=== PATIENT | female | born 1940 | race Caucasian/White ===

== ENCOUNTER 2017-03-22 03:27 | Inpatient (IN) | payer OTHER, MEDICARE ==
[~2017-03-22] VITALS: Ht 170.2 cm; Wt 94.8 kg
[~2017-03-22 03:27] MED LIST: AMARYL 2 MG2 MG PO; BENAZEPRIL HCL20 MG PO; FLEXERIL10 MG PO; FLU VACCINE 0.0.5 ML IM; FUROSEMIDE40 M1 PO; GLUCOPHAGE850 MG PO; IMODIUM2 MG PO; KLOR-CON 88 ME1 PO; LEVEMIR100 UNIT/1 SC; LEVOTHYROXINE75 MCG PO; OMEPRAZOLE20 M2 PO; OXYCODONE HYDRO10 M1 PO; PERCOCET 325 MG1 TA2 PO; PERCOCET 325 MG1 TA3 PO; PNEUMOVAX 0.5M0.5 ML IM; PREDNICOT20 MG PO; TRAMADOL HCL50 M1 PO; TRAZODONE HCL50 M1 PO; TRAZODONE50 MG PO; TRIAMCINOLONE A80 GM TOP; VALIUM2 MG PO; VALIUM5 M1 PO; VITAMIN B12100 MCG PO; VITAMIN D1000 IU PO; VITAMIN D32000 I1 PO; ZOLOFT25 MG PO
--- NOTE | 2017-03-22 09:32 | Operative Report ---
Operative/Inv Procedure Report Surgery Date: 03/22/17 Name of Procedure: Total hip arthroplasty, left Pre-Operative Diagnosis: Left hip primary osteoarthritis Post-Operative Diagnosis: Same Estimated Blood Loss: 300 CC Surgeon/Air Conditioning Mechanic Industrial: HILLARY CONNORS,RORO Bolanos Anesthesia: general endotracheal tube IV Fluids: See anesthesia record Implants: Rock Accolade stem size 7, size 52 acetabular shell -5 neck length 86 mm head Drains: None Specimens: Left femoral head Complications: None Condition: Stable Operative Indication: Patient is a 77-year-old female with severe osteoarthritis of the left hip. She was indicated for total hip arthroplasty after failed conservative treatment. A skilled set hands was necessary provided by physician auction assistant Caleb Bolanos weighted with positioning retraction throughout the case. Risks and benefits of the procedure discussed the patient in detail and she wished to proceed. Operative/Procedure Note Note: Once informed consent was obtained and the correct limb was identified the patient brought to operative room placed on table supine position. After administration of general endotracheal anesthesia patient placed in right lateral decubitus position with an axial roll in place on the pegboard. All bony prominences were padded. A Cruz catheter had been placed. The left lower 70 is prepped and draped usual sterile fashion. To begin the procedure suture and incisions made from the tip of the greater trochanteric area posteriorly. Sharp dissection carried on skin and subcutaneous tissue. Copious mas fascia was incised. We then retractors were placed in the incision and the piriformis tendon was identified. Retractors were placed under the gluteus medius muscle belly and under the femoral shaft just below the lesser trochanter. Once the piriformis tendon had been released and tagged the chondral air was used to isolate the capsule and the retractor was then placed underneath gluteus minimus tendon. Capsulotomy was performed and this was taken back as a flap intact as well for later repair. The hip was dislocated and a femoral neck cut was made 1 fingerbreadth above the lesser trochanter. Femoral head was passed off as specimen. Anterior and inferior acetabular retractors were placed and pulmonary and anterior capsule removed from acetabulum. Reaming was then begun and we reamed up to a 51 reamer. A 52 trial acetabulum was placed and found to be an excellent press-fit. The acetabular socket was pulse lavaged and a 52 acetabular shell from the Rock set was placed into a press-fit fashion without any, patient. No screws were necessary for fixation. Attention was then turned to the femoral side of the arthroplasty. Box osteotome was used to open up the femoral canal and then we use a starting reamer as well to open up distally. We then sequentially broached up to a size 7 broach. The Accolade 2 size 7 broach was left in place trial reduction was done. The leg lengths are measured and a and the leg was slightly long with a standard neck length. Recommend to a -5 neck length and leg lengths were equal. The leg was taken through a range of motion hip was stable. Components were removed after dislocation. And the canal was pulse lavaged. A size 7 Accolade 2 press-fit stem was opened and placed on the canal without compensation. Retrial was done and the -5 neck length was appropriate. A 36 mm head -5 neck length was opened and placed onto the femoral component and the hip was reduced. Hip was taken through a range of motion found be stable. The wound was pulse lavaged. Drill holes were placed the greater trochanter and the capsule and piriformis and repaired back to the greater trochanter. The gluteus karin fascia was then closed with a running #1 PDS looped suture. The tissues closed #1 Vicryl interrupted sutures and the the subcutaneous tissues closed with #2 Vicryl interrupted sutures and the skin was closed erik. Sterile dressing was applied hip adduction pillow was placed and the patient awakened taken recovery in stable condition.
--- NOTE | 2017-03-22 10:24 | RADIOLOGY REPORT ---
EXAMINATION: XR HIP, LEFT CLINICAL INFORMATION: Status post left total hip arthroplasty. COMPARISON: None TECHNIQUE: Single frontal radiograph of the left hip. FINDINGS: There are post total hip arthroplasty changes with metallic acetabular and femoral components without evidence of immediate complication. Multiple cutaneous clips are identified laterally. IMPRESSION: Post total hip arthroplasty changes left hip without evidence of immediate complication.
[2017-03-22 11:35] VITALS: BP 126/78
--- NOTE | 2017-03-22 13:15 | PN- Orthopedic ---
Subjective Subjective: The patient was seen this afternoon postoperatively. She reports that her pain is under adequate control however she complains of some nausea. She has no other complaints and denies any chest pain or difficulty breathing. Objective Vital Signs and I&Os Vital Signs Date Time Temp Pulse Resp B/P B/P Pulse O2 O2 Flow FiO2 Mean Ox Delivery Rate 03/22 1135 97.8 88 20 126/78 94 Room Air Intake & Output 03/22 1600 03/22 0800 03/22 0000 03/21 1600 03/21 0800 03/21 0000 Intake Total Output Total Balance Patient 209 lb Weight Weight Reported by Patient Measurement Method Physical Exam: Gen.: Alert and in no obvious distress Skin: Warm and dry Cardiac: S1-S2 regular Pulmonary: Bilateral breath sounds were equal and decreased at bases Extremities: Bilateral lower extremities are warm without calf tenderness or significant edema. Gross motor and sensory are intact. Left hip surgical dressing was clean, dry, and intact. Assessment/Plan Assessment/Plan Assessment: 77-year-old female status post left total hip arthroplasty. Postoperative the patient is progressing as expected and her pain is under adequate control. Plan: Advance diet as tolerated Continue hydration and Cruz catheter until the morning Begin DVT prophylaxis tonight with first dose of Coumadin Postoperative prophylactic antibiotics Out of bed with physical therapy Will order additional antiemetic Continue current pain regiment Follow-up morning laboratory studies Resume home medications Core Measures/Miscellaneous Venous Thromboembolism VTE Risk Factors: Age > 40, Obesity, Surgery VTE Contraindications: No Contraindications VTE Diagnosis: No Beta Ingrid Is Beta Ingrid a Home Med? No Antibiotics Is Patient on Antibiotics? Yes If Yes: prophylaxis
[2017-03-22 14:10] VITALS: BP 140/66
[2017-03-22 17:03] VITALS: BP 132/60
[2017-03-22 19:07] VITALS: BP 150/60
[2017-03-22 21:38] VITALS: BP 148/63
[2017-03-23 02:27] VITALS: BP 115/62
--- NOTE | 2017-03-23 07:13 | PN- Orthopedic ---
See Addendum Subjective Subjective: The patient was seen this morning postoperatively day 1. She reports her pain is under adequate control and has no other complaints at the current time. Objective Vital Signs and I&Os Vital Signs Date Time Temp Pulse Resp B/P B/P Pulse O2 O2 Flow FiO2 Mean Ox Delivery Rate 03/23 0227 99.8 83 18 115/62 93 Room Air 03/22 2138 98.2 80 20 148/63 95 Room Air 03/22 1907 98.6 85 20 150/60 96 Room Air 03/22 1703 97.8 78 20 132/60 92 Room Air 03/22 1410 97.6 70 20 140/66 94 Room Air 03/22 1135 97.8 88 20 126/78 94 Room Air Intake & Output 03/23 0803/23 0000 03/22 1600 03/22 0800 03/22 0000 03/21 1600 Intake Total 550 Output Total 700 275 Balance -700 275 Intake, IV 150 Intake, Oral 400 Output, Urine 700 275 Patient 209 lb Weight Weight Reported by Patient Measurement Method Physical Exam: Gen.: Alert and in no obvious distress Skin: Warm and dry Extremities: Bilateral lower extremities are warm without calf tenderness or significant edema. Gross motor and sensory are intact. Left hip surgical dressing is clean, dry, and intact. Assessment/Plan Assessment/Plan Assessment: 77-year-old female status post left total hip arthroplasty postoperative day 1. The patient is progressing as expected and her pain is under adequate control. Plan: Out of bed with physical therapy Continue current pain regiment Hep-Lock IV fluids and DC Cruz catheter Follow-up morning laboratory studies and dose Coumadin for an INR between 2 and 3 For surgical dressing change tomorrow Incentive spirometry GI and DVT prophylaxis Core Measures/Miscellaneous Venous Thromboembolism VTE Risk Factors: Age > 40, Obesity, Surgery VTE Contraindications: No Contraindications VTE Diagnosis: No Beta Ingrid Is Beta Ingrid a Home Med? No Antibiotics Is Patient on Antibiotics? No
[2017-03-23 07:41] VITALS: BP 100/60
[2017-03-23 08:15] LABS: ABSOLUTE BASOPHIL COUNT 0.1 /CUMM (0.0-0.2); ABSOLUTE EOSINOPHIL COUNT 0 /CUMM (0.0-0.7); ABSOLUTE LYMPH COUNT 2.1 /CUMM (1.2-3.4); ABSOLUTE MONOCYTE COUNT 1.4 /CUMM (0.10-0.60); BASOPHIL % 0.3 % (0.0-2.0); EOSINOPHIL % 0.1 % (0-5); GRANULOCYTE % 79.5 % (42.2-75.2); HEMATOCRIT 34.9 % (37-47); MEAN CORPUSCULAR HGB 29.5 PG (27.0-31.0); MEAN CORPUSCULAR HGB CONC 33.9 G/DL (33.0-37.0); PLATELET COUNT 160 /CUMM (130-400); PT 12.7 SEC (9.4-12.5); RBC DISTRIBUTION WIDTH 14.4 % (11.5-14.5); RED BLOOD CELL CT 4.01 /CUMM (4.20-5.40); WHITE BLOOD CELL COUNT 17.6 /CUMM (4.8-10.8)
[2017-03-23 10:37] VITALS: BP 118/78
--- NOTE | 2017-03-23 12:12 | Cons- Medical ---
General Information and HPI Consulting Request Date of Consult: 03/23/17 Requested By: HILLARY CONNORS,RORO Galindo Reason for Consult: Medical comanagement Source of Information: patient, old records Exam Limitations: no limitations History of Present Illness: 77-year-old female with history of Diabetes mellitus on insulin, hypertension, COPD, fibromyalgia, IBS, spinal stenosis and insomnia. Past surgical history significant for right thyroid lobectomy, two discs removed from her spine, oophorectomy status post day 1 left total hip arthroplasty without complications. On evaluation she complains of left hip discomfort otherwise ambulatory with PT. Allergies/Medications Allergies: Coded Allergies: Penicillins (RASH 01/04/16) acetaminophen (? 03/16/17) albuterol (From VENTOLIN HFA) (? 03/16/17) celecoxib (From CELEBREX) (? 03/16/17) codeine (From TYLENOL-CODEINE) (? 03/16/17) hydrochlorothiazide (From MAXZIDE) (UNKNOWN 01/04/16) iodine (? 03/16/17) polymyxin B (? 03/16/17) rofecoxib (From VIOXX) (? 03/16/17) sulfamethoxazole (From SEPTRA) (UNKNOWN 01/04/16) triamterene (From MAXZIDE) (UNKNOWN 01/04/16) trimethoprim (From SEPTRA) (UNKNOWN 01/04/16) gabapentin (NAUSEA / VOMITING 03/16/17) prednisone (NAUSEA / VOMITING 03/16/17) Home Med List: Benazepril HCl 20 MG TABLET 1 TAB PO DAILY BP (Reported) Furosemide 40 MG TABLET 1 TAB PO DAILY BP (Reported) Insulin Detemir (Levemir) 100 UNIT/ML VIAL 20 UNITS SC BID DM II (Reported) Levothyroxine Sodium 75 MCG TABLET 1 TAB PO DAILY AC THYROID (Reported) Omeprazole 20 MG CAPSULE.DR 1 CAP PO DAILY GI (Reported) Potassium Chloride (Klor-Con 8) 8 MEQ TABLET.ER 1 TAB PO DAILY BC OF FUROSEMIDE (Reported) Tramadol HCl 50 MG TABLET 1 TAB PO TIDPRN PAIN (Reported) Trazodone HCl 50 MG TABLET 1 TAB PO QPM SLEEP (Reported) Current Medications: Current Medications Sig/Fercho Start time Last Medication Dose Route Stop Time Status Admin Al Hydroxide/Mg 30 ML Q6P PRN 03/22 1145 AC Hydroxide PO Docusate Sodium 100 MG BID 03/22 2200 AC 03/22 PO 2237 Docusate Sodium 100 MG DAILY NEEDED PRN 03/22 1145 DC PO Furosemide 40 MG DAILY 03/22 1000 AC 03/23 PO 1037 Insulin Detemir 20 UNITS BID 03/22 1000 AC 03/23 SC 1036 Insulin Human Regular 0 TIDAC/HS 03/22 1200 AC 03/23 SC 1203 Levothyroxine Sodium 0.075 MG DAILY AC 03/23 0700 AC 03/23 PO 0553 Lisinopril 20 MG DAILY 03/23 1000 AC 03/23 PO 1037 Metoclopramide HCl 10 MG ONCE ONE 03/22 1315 DC 03/22 IV 03/22 1316 1345 Morphine Sulfate 2 MG Q3P PRN 03/22 1145 AC IV Morphine Sulfate 4 MG Q3P PRN 03/22 1145 AC 03/23 IV 1038 Omeprazole 20 MG DAILY 03/22 1000 AC PO Ondansetron HCl 4 MG Q6P PRN 03/22 1145 AC 03/22 IV 1147 Oxycodone HCl 5 MG Q4P PRN 03/23 0730 AC 03/23 PO 0818 Polyethylene Glycol 17 GM DAILY NEEDED PRN 03/22 1145 AC PO Potassium Chloride 10 MEQ DAILY 03/23 1000 AC 03/23 PO 1037 Senna/Docusate Sodium 2 TAB AT BEDTIME 03/22 2200 AC 03/22 PO 2237 Senna/Docusate Sodium 2 TAB AT BEDTIME NEED.. 03/22 1145 DC PO Sodium Chloride 1,000 ML .[id number] 03/22 1145 DC 03/22 IV 2307 Tramadol HCl 50 MG Q4P PRN 03/22 1145 DC 03/22 PO 1459 Trazodone HCl 50 MG QPM 03/22 2200 AC 03/22 PO 2237 Vancomycin HCl 1,000 MG ONCE ONE 03/22 190 DC 03/22 Sodium Chloride 250 ML IV 03/22 1959 1841 Warfarin Sodium 5 MG COUMADIN 1700 ONE 03/23 1700 AC PO 03/23 1701 Warfarin Sodium 5 MG COUMADIN 1700 ONE 03/22 1700 DC 03/22 PO 03/22 1701 1711 Review of Systems Review of Systems Constitutional: Denies: no symptoms, see HPI, chills, diaphoresis, fever, malaise, weakness, unexplained weight loss. Cardiovascular: Denies: no symptoms, see HPI, chest pain, edema, orthopena, palpitations, peripheral edema, syncope. Respiratory: Denies: no symptoms, see HPI, cough, hemoptysis, orthopnea, short of breath, sputum production, stridor, wheezing. GI: Denies: no symptoms, see HPI, abdominal pain, bloating, constipation, diarrhea, distention, bowel incontinence, melena, nausea, bloody stool, changes in stool, vomiting, steatorrhea. Genitourinary: Denies: no symptoms, see HPI, discharge, dysuria, frequency, hematuria, hesitation, nocturia, pain, urgency. Musculoskeletal: Reports: joint pain. Skin: Denies: no symptoms, see HPI, cysts, change in skin color, change in hair/nails, dryness, erythema, jaundice, lesions, lymphangitis, lumps, moles, rash. 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 Home Services at Home: None Smoking Status: Former Smoker Exam & Diagnostic Data Last 24 Hrs of Vital Signs/I&O Vital Signs Date Time Temp Pulse Resp B/P B/P Pulse O2 O2 Flow FiO2 Mean Ox Delivery Rate 03/23 1037 78 118/78 03/23 1037 78 20 118/78 95 Room Air 03/23 0741 99.2 85 20 100/60 94 Room Air 03/23 0227 99.8 83 18 115/62 93 Room Air 03/22 2138 98.2 80 20 148/63 95 Room Air 03/22 1907 98.6 85 20 150/60 96 Room Air 03/22 1703 97.8 78 20 132/60 92 Room Air 03/22 1410 97.6 70 20 140/66 94 Room Air Intake & Output 03/23 1600 03/23 0800 03/23 0000 Intake Total Output Total 300 100 700 Balance -300 -100 -700 Output, Urine 300 100 700 Physical Exam General Appearance: alert, awake, mild distress Respiratory: normal breath sounds, chest non-tender, lungs clear Cardiovascular: regular rate/rhythm Gastrointestinal: soft, non-tender Extremities: no edema, left upper thigh incision site clean Last 24 Hrs of Labs/Satya: Laboratory Tests 03/23/17 0625: Anion Gap 12, Estimated GFR 43 L, BUN/Creatinine Ratio 15.0, PT 12.7 H, INR 1.21 H, CBC w Diff NO MAN DIFF REQ, RBC 4.01 L, MCV 87.0, MCH 29.5, RDW 14.4, MPV 10.0, Gran % 79.5 H, Lymphocytes % 12.0 L, Monocytes % 8.1, Eosinophils % 0.1, Basophils % 0.3, Absolute Granulocytes 14.0 H, Absolute Lymphocytes 2.1, Absolute Monocytes 1.4 H, Absolute Eosinophils 0, Absolute Basophils 0.1, PUBS MCHC 33.9 Assessment/Plan Assessment/Plan 77-year-old female with history of Diabetes mellitus on insulin, hypertension, COPD, fibromyalgia, IBS, spinal stenosis and insomnia is status post day 1 left total hip arthroplasty without complications. On evaluation she complains of left hip discomfort otherwise ambulatory with PT. she has mild leukocytosis and urine growing gram-negative rods however with 50,000 colonies. Patient otherwise is afebrile and has no urinary symptoms. She must be followed off antibiotics. Blood sugars borderline elevated. Plan Follow off antibiotics Consider increasing insulin sliding-scale by 2 units for every 50 increment in blood sugar Continue blood pressure medication Continue current pain medication Coumadin for 6 weeks PT evaluation/patient prefers home discharge with services We'll continue to follow Problem List: 1. Arthritis 2. Hyperglycemia Copies To: HILLARY CONNORS,RORO Galindo Consult Acknowledgment - Thank you for your consult request.
[2017-03-23 14:20] VITALS: BP 124/50
[2017-03-23 21:31] VITALS: BP 122/50
[2017-03-24 06:45] VITALS: BP 121/43
--- NOTE | 2017-03-24 08:04 | PN- Orthopedic ---
Subjective Subjective: POD#2 S/P LEFT LOVELY NO MAJOR ISSUES OVERNIGHT SITTING UP IN CHAIR NOW EATING BREAKFAST MARCYEIS CP, SOB, NO N+V WITH DIET Objective Vital Signs and I&Os Vital Signs Date Time Temp Pulse Resp B/P B/P Pulse O2 O2 Flow FiO2 Mean Ox Delivery Rate 03/24 0645 99.0 83 20 121/43 95 Room Air 03/23 2131 98.5 88 18 122/50 93 03/23 1420 98.3 89 18 124/50 92 Room Air 03/23 1037 78 118/78 03/23 1037 78 20 118/78 95 Room Air Intake & Output 03/24 1600 03/24 0800 03/24 0000 03/23 1600 03/23 0800 03/23 0000 Intake Total 260 800 775 Output Total 450 600 100 700 Balance 260 350 175 -100 -700 Intake, IV 20 75 Intake, Oral 240 800 700 Number 0 0 Bowel Movements Output, Urine 450 600 100 700 Physical Exam: CV: RRR LUNGS: CLEAR ABD: SOFT, +BS EXT: DRSG CHANGED, WOUND C/D/I THIGH SOFT NO CALF TENDERNESS BILAT DISTAL CMS INTACT Assessment/Plan Assessment/Plan ORTHO STABLE PLAN CONT OOB WITH PT/STAIRS F/U AM LABS TITRATE COUMADIN DOSE FOR INR 2-3 HOME D/C PLANNING IN AM Core Measures/Miscellaneous Venous Thromboembolism VTE Risk Factors: Age > 40, Obesity, Surgery VTE Contraindications: No Contraindications VTE Diagnosis: No Beta Ingrid Is Beta Ingrid a Home Med? No Antibiotics Is Patient on Antibiotics? No
[2017-03-24 08:17] LABS: PT 16.5 SEC (9.4-12.5)
--- NOTE | 2017-03-24 09:20 | PN- Medicine Consult ---
Assessment/Plan Assessment/Plan Assessment: Patient complaining of pain in her joints and lower back since starting opioid pain meds. Is possible her fibromyalgia might be flaring secondary to opiate pain meds. Since narcotics are contraindicated in patients with fibro-myalgia. I have advised patient to cut down the use of narcotics. It'll also be reasonable to use a lesser potent opioid. Also noted acute kidney injury likely secondary to poor by mouth intake of fluids and Lasix. Plan: Plan Consider using tramadol for [id number] pain and oxycodone for severe pain Decrease doses of narcotics Hold Lasix and encourage by mouth fluids Repeat BMP in a.m. Continue blood pressure medication Coumadin for 6 weeks PT evaluation/patient prefers home discharge with services We'll continue to follow Problem List: 1. Acute low back pain 2. Hyperglycemia Subjective Subjective: Patient completed some pain in her joints and lower back Review of Systems Constitutional: Denies: no symptoms, see HPI, chills, diaphoresis, fever, malaise, weakness, unexplained weight loss. Cardiovascular: Denies: no symptoms, see HPI, chest pain, edema, orthopena, palpitations, peripheral edema, syncope. Respiratory: Denies: no symptoms, see HPI, cough, hemoptysis, orthopnea, short of breath, sputum production, stridor, wheezing. Gastrointestinal: Denies: no symptoms, see HPI, abdominal pain, bloating, constipation, diarrhea, distention, bowel incontinence, melena, nausea, bloody stool, changes in stool, vomiting, steatorrhea. Musculoskeletal: Reports: back pain, joint pain. Skin: Denies: no symptoms, see HPI, cysts, change in skin color, change in hair/nails, dryness, erythema, jaundice, lesions, lymphangitis, lumps, moles, rash. Objective Last 24 Hrs of Vital Signs/I&O Vital Signs Date Time Temp Pulse Resp B/P B/P Pulse O2 O2 Flow FiO2 Mean Ox Delivery Rate 03/24 0645 99.0 83 20 121/43 95 Room Air 03/23 2131 98.5 88 18 122/50 93 03/23 1420 98.3 89 18 124/50 92 Room Air 03/23 1037 78 118/78 03/23 1037 78 20 118/78 95 Room Air Intake & Output 03/24 1600 03/24 0800 03/24 0000 Intake Total 260 800 Output Total 450 Balance 260 350 Intake, IV 20 Intake, Oral 240 800 Number 0 Bowel Movements Output, Urine 450 Physical Exam General Appearance: no apparent distress, alert, anxious Cardiovascular: regular rate/rhythm Respiratory: normal breath sounds, lungs clear Abdomen: soft, non-tender Extremities: normal inspection, no edema Current Medications: Current Medications Sig/Fercho Start time Last Medication Dose Route Stop Time Status Admin Al Hydroxide/Mg 30 ML Q6P PRN 03/22 1145 AC Hydroxide PO Docusate Sodium 100 MG BID 03/22 220 AC 03/24 PO 0801 Furosemide 40 MG DAILY 03/22 1000 AC 03/24 PO 0802 Insulin Detemir 20 UNITS BID 03/22 1000 AC 03/24 SC 0802 Insulin Human Regular 4 UNITS .STK-MED ONE 03/23 2138 DC IV 03/23 2139 Insulin Human Regular 8 UNITS .STK-MED ONE 03/23 171 DC IV 03/23 171 Insulin Human Regular 8 UNITS .STK-MED ONE 03/23 1159 DC IV 03/23 1200 Insulin Human Regular 0 TIDAC/HS 03/22 1200 AC 03/24 SC 0802 Levothyroxine Sodium 0.075 MG DAILY AC 03/23 0700 AC 03/24 PO 0625 Lisinopril 20 MG DAILY 03/23 1000 AC 03/24 PO 0802 Morphine Sulfate 2 MG Q3P PRN 03/22 1145 AC IV Morphine Sulfate 4 MG Q3P PRN 03/22 1145 AC 03/23 IV 1038 Omeprazole 20 MG DAILY 03/22 1000 AC PO Ondansetron HCl 4 MG Q6P PRN 03/22 1145 AC 03/22 IV 1147 Oxycodone HCl 5 MG Q4P PRN 03/23 0730 AC 03/24 PO 0804 Polyethylene Glycol 17 GM DAILY NEEDED PRN 03/22 1145 AC PO Potassium Chloride 10 MEQ DAILY 03/23 1000 AC 03/24 PO 0802 Senna/Docusate Sodium 2 TAB AT BEDTIME 03/22 2200 AC 03/22 PO 2237 Trazodone HCl 50 MG QPM 03/22 2200 AC 03/23 PO 2140 Warfarin Sodium 5 MG COUMADIN 1700 ONE 03/23 1700 DC 03/23 PO 03/23 1701 1717 Results Last 24 Hrs Lab/Satya Results: Laboratory Tests 03/24/17 0630: Anion Gap 9, Estimated GFR 31 L, BUN/Creatinine Ratio 17.5, PT 16.5 H, INR 1.58 H
[2017-03-24 14:53] VITALS: BP 116/60
[2017-03-24] MEDS ORDERED: OXYCODONE HCL5 M1 PO (17:08)
[2017-03-24] MEDS ORDERED: DOCUSATE SODIU100 M3 PO (17:08)
[2017-03-24] MEDS ORDERED: COUMADIN5 M2 PO (17:08)
[2017-03-24] MEDS ORDERED: MIRALAX119 GM PO (17:08)
[2017-03-24] MEDS ORDERED: SENNA PLUS TAB1 EACH PO (17:08)
--- NOTE | 2017-03-24 17:13 | Patient Discharge Instructions ---
Discharge Instructions General Discharge Information You were seen/treated for: left hip djd You had these procedures: left total hip arthroplasty Watch for these problems: temp>101.5, increased wound drainage/redness, increased pain Call Surgeon to remove: [place] No bath, but you may shower: Yes Other wound care: keep wound clean and dry Diet Continue normal diet: Yes Activity Activity Limited to: Weight bear as tolerated Other activity limits: posterior hip precautions Acute Coronary Syndrome Inclusion Criteria At DC or during hospital stay patient has or had the following: ACS DIAGNOSIS No Discharge Core Measures Meds if any: Prescribed or Continued at Discharge Meds if any: NOT Prescribed or Continued at Discharge Congestive Heart Failure Inclusion Criteria At DC or during hospital stay patient has or had the following: CHF DIAGNOSIS No Discharge Core Measures Meds if any: Prescribed or Continued at Discharge Meds if any: NOT Prescribed or Continued at Discharge Cerebrovascular accident Inclusion Criteria At DC or during hospital stay patient has or had the following: CVA/TIA Diagnosis No Discharge Core Measures Meds if any: Prescribed or Continued at Discharge Meds if any: NOT Prescribed or Continued at Discharge Venous thromboembolism Inclusion Criteria VTE Diagnosis No VTE Type NONE VTE Confirmed by (Test) NONE Discharge Core Measures - Per Current guidelines, there needs to be overlap - treatment for the first 5 days of Warfarin therapy. - If discharged on Warfarin prior to 5 days of - overlap therapy, the patient will need to be - assessed for post discharge needs including - *Post discharge parental anticoagulation - *Warfarin and/or parental anticoagulation education - *Follow up date to check INR post discharge At least 5 days overlap therapy as Inpatient No Meds if any: Prescribed or Continued at Discharge Note: Overlap Therapy is Warfarin and Anticoagulant Meds if any: NOT Prescribed or Continued at Discharge
[2017-03-24] MEDS ORDERED: TRAMADOL HCL50 M1 PO (17:18)
[2017-03-24 22:43] VITALS: BP 116/68
[2017-03-25 07:17] VITALS: BP 118/40
[2017-03-25 07:41] LABS: PT 20.2 SEC (9.4-12.5)
--- NOTE | 2017-03-25 12:26 | PN- Orthopedic ---
Surgical Brief Attending Note Brief Attending Note: Patient seen this morning. Resting comfortably in a chair. The left lower Mary Jane dressing is clean dry and intact. She has no complaints. The left thoracotomy is neurovascularly intact. The patient is planning on going home from the hospital. Awaiting bowel movement prior to discharge. Once that has occurred she can be discharged to home with home health care set up.
[2017-03-25] MEDS ORDERED: COUMADIN1 M1 PO (12:56)
--- NOTE | 2017-03-25 13:00 | PN- Orthopedic ---
Subjective Subjective: Patient comfortable, pain is controlled, she is passing gas and I was just informed by the nurse she had a bowel movement. Objective Vital Signs and I&Os Vital Signs Date Time Temp Pulse Resp B/P B/P Pulse O2 O2 Flow FiO2 Mean Ox Delivery Rate 03/25 0717 99.0 74 20 118/40 93 Room Air 03/25 0000 93 Room Air 03/24 2243 97.6 70 20 116/68 93 Room Air 03/24 1453 97.4 84 20 116/60 93 Room Air Intake & Output 03/25 0800 03/25 0000 03/24 1600 03/24 0000 Intake Total 700 650 910 260 800 Output Total 400 850 450 Balance 300 650 60 260 350 Intake, IV 600 300 10 20 Intake, Oral 100 350 900 240 800 Number 0 0 0 Bowel Movements Output, Urine 400 850 450 Physical Exam: Well-developed well-nourished no apparent distress. HEENT: Atraumatic, extraocular motion intact Neck: Supple, no lymphadenopathy Respiratory: No respiratory distress Extremities: No edema Left lower extremity hip dressing in place, Dressing clean dry and intact with minimal bloody staining Incision without erythema Mild thigh edema No signs of infection. No shortening or rotation Hip range of motion is limited and without unexpected pain Neurovascularly intact distally Bilateral calves are supple, nontender. Neuro: Alert and oriented x3 Psych: Mood affect normal, normal memory normal judgment. Skin: Warm and dry, no rash on exposed skin Results Last 48 Hours of Labs: Laboratory Tests 03/25 03/24 03/24 0615 0630 0600 Chemistry Sodium (137 - 145 mmol/L) 133 L 134 L Potassium (3.5 - 5.1 mmol/L) 4.2 4.2 Chloride (98 - 107 mmol/L) 101 100 Carbon Dioxide (22 - 30 mmol/L) 24 25 Anion Gap (5 - 16) 9 9 BUN (7 - 17 mg/dL) 39 H 28 H Creatinine (0.5 - 1.0 mg/dL) 1.7 H 1.6 H Estimated GFR (>60 ml/min) 29 L 31 L BUN/Creatinine Ratio (7 - 25 %) 22.9 17.5 Coagulation PT (9.4 - 12.5 SEC) 20.2 H 16.5 H INR (0.90 - 1.19) 1.94 H 1.58 H Hematology CBC w Diff Cancelled WBC Cancelled RBC Cancelled Hgb Cancelled Hct Cancelled MCV Cancelled MCH Cancelled RDW Cancelled Plt Count Cancelled MPV Cancelled PUBS MCHC Cancelled Assessment/Plan Assessment/Plan Postop day #3 status post left total hip arthroplasty Orthopedic was stable for discharge home today, continue pain medication, Coumadin keep her INR between 2 and 3 currently 1.93, recommend 2 mg tonight, discussed with patient, follow-up as outpatient in approximately 10 days' time Core Measures/Miscellaneous Venous Thromboembolism VTE Risk Factors: Age > 40, Obesity, Surgery VTE Contraindications: No Contraindications VTE Diagnosis: No Beta Ingrid Is Beta Ignrid a Home Med? No Antibiotics Is Patient on Antibiotics? No
--- NOTE | 2017-04-07 11:12 | Surgical Discharge Summary ---
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 Home Who Do You Live With? Spouse Services at Home: None What is Your Primary Language? Greek Review of Systems: see hpi Hospital Course Course Attending Physician: RORO THORNTON MD Primary Care Physician: JULIANA VERDE MD Hospital Course: pt underwent a L JARRETT for OA. she did very well postoperatively, no complications, no fever, pain is controlled. she tolerated a diet and had a bowel movement before discharge. she was placed on dvt prophylaxsis and perioperative abx. on post op day #3 she was stable for discharge. Complications: none Allergies: Coded Allergies: Penicillins (RASH 01/04/16) acetaminophen (? 03/16/17) albuterol (From VENTOLIN HFA) (? 03/16/17) celecoxib (From CELEBREX) (? 03/16/17) codeine (From TYLENOL-CODEINE) (? 03/16/17) hydrochlorothiazide (From MAXZIDE) (UNKNOWN 01/04/16) iodine (? 03/16/17) polymyxin B (? 03/16/17) rofecoxib (From VIOXX) (? 03/16/17) sulfamethoxazole (From SEPTRA) (UNKNOWN 01/04/16) triamterene (From MAXZIDE) (UNKNOWN 01/04/16) trimethoprim (From SEPTRA) (UNKNOWN 01/04/16) gabapentin (NAUSEA / VOMITING 03/16/17) prednisone (NAUSEA / VOMITING 03/16/17) Disposition Summary Disposition Principal Diagnosis: L hip primary unilateral osteoarthritis Additional Diagnosis: sp L jarrett Discharge Disposition: home health services Discharge Instructions General Discharge Information Code Status: Full Code Patient's Diet: reg Patient's Activity: as tolerated Follow-Up Instructions/Appts: to fup with orthopedic surgeon as out pt in 1-2 w Medications at Discharge Discharge Medications: Stop taking the following medications: Tramadol HCl (Tramadol HCl) 50 MG TABLET ORAL THREE TIMES A DAY NEEDED Continue taking these medications: Potassium Chloride (Klor-Con 8) 8 MEQ TABLET.ER 1 Tablet ORAL DAILY Comments: Last Taken: 03/25/17 Time: 0830 AM Benazepril HCl (Benazepril HCl) 20 MG TABLET 1 Tablet ORAL DAILY Comments: TOOK LISINIPRIL IN HOSPITAL Last Taken: 03/25/17 Time: 0830 AM Levothyroxine Sodium (Levothyroxine Sodium) 75 MCG TABLET 1 Tablet ORAL DAILY BEFORE BREAKFAST Comments: Last Taken: 03/25/17 Time: 0650 AM Trazodone HCl (Trazodone HCl) 50 MG TABLET 1 Tablet ORAL Every night Comments: Last Taken: 03/25/17 Time: 2100 PM Omeprazole (Omeprazole) 20 MG CAPSULE.DR 1 Capsule ORAL DAILY Comments: NOT GIVEN IN HOSPITAL Insulin Detemir (Levemir) 100 UNIT/ML VIAL 20 Units Inject into fatty tissue TWICE DAILY Comments: Last Taken: 03/25/17 Time: 0830 AM Start taking the following new medications: Warfarin Sodium (Coumadin) 5 MG TABLET 1 Tablet ORAL DAILY Qty = 30 No Refills Comments: Last Taken: 03/24/17 Time: 1700 PM WILL TAKE 2MG 03/25/17 @ 1700 Oxycodone HCl (Oxycodone HCl) 5 MG TABLET 1-2 Tablet ORAL EVERY 4 HOURS NEEDED as needed for PAIN SCALE 7-10 ( SEVERE) Qty = 30 No Refills Comments: Last Taken: 03/25/17 Time: 0645 AM Docusate Sodium (Docusate Sodium) 100 MG CAPSULE 1 Tablet ORAL TWICE DAILY Qty = 30 No Refills Comments: Last Taken: 03/25/17 Time: 0830 AM Polyethylene Glycol 3350 (Miralax) 17 GRAM/DOSE POWDER 1 Packet ORAL DAILY NEEDED as needed for NO BM IN TWO DAYS Qty = 10 No Refills Comments: Last Taken: 03/24/17 Time: 1000 AM Sennosides/Docusate Sodium (Senna Plus Tablet) 8.6 MG-50 MG TABLET 2 Tablet ORAL AT BEDTIME Qty = 20 No Refills Comments: Last Taken: 03/24/17 Time: 2100 PM Tramadol HCl (Tramadol HCl) 50 MG TABLET 1 Tablet ORAL EVERY 4 HOURS NEEDED as needed for PAIN SCALE 1-3 (MILD) Qty = 36 No Refills Comments: Last Taken: 03/25/17 Time: 1200 PM Warfarin Sodium (Coumadin) 1 MG TABLET 1 Tablet ORAL As Directed Qty = 30 No Refills
== END 2017-03-25 13:50 | disposition home health service (06) | DRG 470 ==
LOC: SDA 03:27 → STS 07:00 → EDSTATUS 07:00 → SDA 07:00 → ENRESERV 10:06 → 2NB 11:34
PROVIDERS: Physician Assistant; Physician Assistant Surgical; ADMIT Orthopaedic Surgery Foot and Ankle Surgery
PROC: 0SRB0JA Replacement of Left Hip Joint with Synthetic Substitute, Uncemented, Open Approach (ICD-10-PCS; principal; 2017-03-22)
DX: M16.12 Unilateral primary osteoarthritis, left hip (principal); E11.9 Type 2 diabetes mellitus without complications; I10 Essential (primary) hypertension; E03.9 Hypothyroidism, unspecified; K21.9 Gastro-esophageal reflux disease without esophagitis; M79.7 Fibromyalgia; M48.00 Spinal stenosis, site unspecified
CPT/HCPCS: 2NBSP; 36415; 73501; 82436; 87086; 88304; 97110-GO; 97116-GO; 97161-GP; 97530-GO; C9399; J1815; J2765; J3370; J7040

== ENCOUNTER 2018-07-17 10:48 | Inpatient (IN) | payer OTHER, MEDICARE ==
[~2018-07-17] VITALS: Ht 170.2 cm; Wt 91.2 kg
[~2018-07-17 10:48] MED LIST changes: +COUMADIN1 M1 PO; +COUMADIN5 M2 PO; +DOCUSATE SODIU100 M3 PO; +MIRALAX119 GM PO; +OXYCODONE HCL5 M1 PO; +SENNA PLUS TAB1 EACH PO
[2018-07-17 12:07] LABS: ABSOLUTE BASOPHIL COUNT 0 /CUMM (0.0-0.2); ABSOLUTE EOSINOPHIL COUNT 0.1 /CUMM (0.0-0.7); ABSOLUTE GRANULOCYTE CT 13.3 /CUMM (1.4-6.5); ABSOLUTE LYMPH COUNT 2.1 /CUMM (1.2-3.4); ABSOLUTE MONOCYTE COUNT 0.7 /CUMM (0.10-0.60); BASOPHIL % 0.2 % (0.0-2.0); EOSINOPHIL % 0.4 % (0-5); GRANULOCYTE % 82.2 % (42.2-75.2); HEMATOCRIT 45.3 % (37-47); MEAN CORPUSCULAR HGB 30.1 PG (27.0-31.0); MEAN CORPUSCULAR HGB CONC 33.8 G/DL (33.0-37.0); MEAN CORPUSCULAR VOLUME 89.1 FL (81.0-99.0); MEAN PLATELET VOLUME 11.1 FL (7.4-10.4); PLATELET COUNT 216 /CUMM (130-400); RBC DISTRIBUTION WIDTH 14.2 % (11.5-14.5); RED BLOOD CELL CT 5.09 /CUMM (4.20-5.40); WHITE BLOOD CELL COUNT 16.1 /CUMM (4.8-10.8)
[2018-07-17] MEDS ORDERED: POTASSIUM CHLOR8 ME2 PO (14:15)
[2018-07-17] MEDS ORDERED: FUROSEMIDE40 M1 PO (14:15)
--- NOTE | 2018-07-17 14:21 | ED GENERAL ADULT ---
History of Present Illness General Chief Complaint: General Adult Stated Complaint: UTI SYMPTOMS PER PT C/O BOTH ARMS ITCHING Source: patient Exam Limitations: no limitations Vital Signs & Intake/Output Vital Signs & Intake/Output Vital Signs Date Time Temp Pulse Resp B/P B/P Pulse O2 O2 Flow FiO2 Mean Ox Delivery Rate 07/17 1312 88 18 189/79 98 Room Air 07/17 1053 98.6 105 18 164/80 98 Room Air Allergies Coded Allergies: Penicillins (RASH 01/04/16) acetaminophen (? 03/16/17) albuterol (From VENTOLIN HFA) (? 03/16/17) celecoxib (From CELEBREX) (? 03/16/17) codeine (From TYLENOL-CODEINE) (? 03/16/17) hydrochlorothiazide (From MAXZIDE) (UNKNOWN 01/04/16) iodine (? 03/16/17) polymyxin B (? 03/16/17) rofecoxib (From VIOXX) (? 03/16/17) sulfamethoxazole (From SEPTRA) (UNKNOWN 01/04/16) triamterene (From MAXZIDE) (UNKNOWN 01/04/16) trimethoprim (From SEPTRA) (UNKNOWN 01/04/16) gabapentin (NAUSEA / VOMITING 03/16/17) prednisone (NAUSEA / VOMITING 03/16/17) Triage Note: 78 YO FEMALE TO TRIAGE FOR EVAL OF ?UTI. STATES SHE FEELS THE URGE THE URIANTE BUT WHEN SHE GOES ONLY SMALL AMOUNTS ARE COMING OUT. DENIES ABD PAIN/NVD. ALSO C/O ICHINESS TO BILATERAL ARMS SINCE LAST PM. DENIES NEW SOAPS/PERFUMES/MEDICATIONS. NOTED WITH BRUSIES ALL OVER BILATEAERL ARMS FROM ITCHING. Triage Nurses Notes Reviewed? yes HPI: 78-year-old female presents with 24 hours of itching of the hands and forearms bilaterally in addition to burning when she urinates. Denies flank pain. Denies nausea vomiting. Denies abdominal pain. Denies new soap or medications. Denies coming in contact with anything that she normally does not. States that she is felt the urge to urinate but only a little comes out each time. Positive for dysuria. (Kamari CONNORS,Robbie) Reconcile Medications Benazepril HCl 20 MG TABLET 1 TAB PO DAILY BP (Reported) Furosemide 40 MG TABLET 1 TAB PO DAILY WATER RETENTION (Reported) Insulin Detemir (Levemir) 100 UNIT/ML VIAL 25 UNITS SC BID DM II (Reported) Levothyroxine Sodium 75 MCG TABLET 1 TAB PO DAILY AC THYROID (Reported) Potassium Chloride 8 MEQ TABLET.ER 1 TAB PO DAILY SUPPLEMENT (Reported) Trazodone HCl 50 MG TABLET 1 TAB PO QPM SLEEP (Reported) (Abeba CONNORS,Hugo Ortiz) Past History Travel History Traveled to [place] past 21 day No Medical History Any Pertinent Medical History? 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 No (Robbie Benites MD) Review of Systems Review of Systems Constitutional: Reports: no symptoms, see HPI. EENTM: Reports: no symptoms. Respiratory: Reports: no symptoms. Cardiovascular: Reports: no symptoms. GI: Reports: no symptoms. Genitourinary: Reports: no symptoms. Musculoskeletal: Reports: no symptoms. Skin: Reports: no symptoms. Neurological/Psychological: Reports: no symptoms. Hematologic/Endocrine: Reports: no symptoms. Immunologic/Allergic: Reports: no symptoms. All Other Systems: Reviewed and Negative (Robbie Benites MD) Physical Exam Physical Exam General Appearance: well developed/nourished, no apparent distress Comments: Gen.: Well-nourished, well-developed, no acute respiratory distress. Head: Normocephalic, atraumatic. Eyes: Normal inspection bilaterally Ears: Normal inspection bilaterally Nose: Normal inspection Throat/mouth : Moist mucosa Neck: Supple, full range of motion, no goiter Heart: Regular rate and rhythm, no murmurs rubs or gallops Lungs: Clear to auscultation bilaterally with normal air entry Chest: Nontender Back: Normal range of motion Abdomen: Soft, nontender, nondistended, normal bowel sounds Extremities: Normal range of motion grossly, equal radial pulses, no cyanosis clubbing or edema Neurologic: Cranial nerves grossly intact, speech is clear Skin: Senile purpura bilateral upper extremities. Warmth and erythema over the hands bilaterally. Psychiatric: Calm, cooperative, no apparent delusions or hallucinations Core Measures ACS in differential dx? No CVA/TIA Diagnosis: No Sepsis Present: No Sepsis Focused Exam Completed? No (Kamari CONNORS,Robbie) Progress Differential Diagnoses I considered the following diagnoses in my evaluation of the patient: Acute cystitis. Contact dermatitis. Initial ED EKG: none (Kamari CONNORS,Robbie) Plan of Care: Orders Procedure Date/time Status Heart Healthy Diet 07/17 D Active ED Holding Orders 07/17 1529 Active Admit to inpatient 07/17 1529 Active Vital Signs 07/17 1529 Active Code Status 07/17 1529 Active CULTURE,URINE 07/17 1527 Active BLOOD CULTURE 07/17 1527 Active LACTIC ACID 07/17 1356 Complete URINALYSIS 07/17 1056 Complete LACTIC ACID 07/17 1056 Complete COMPREHENSIVE METABOLIC PANEL 07/17 1056 Complete CBC WITHOUT DIFFERENTIAL 07/17 1056 Complete Current Medications Sig/Fercho Start time Last Medication Dose Stop Time Status Admin Sodium Chloride 1,000 ML BOLUS ONE 07/17 1515 UNVr 07/17 (Normal Saline 0.9%) 07/17 1614 1528 Laboratory Tests 07/17/18 1444: Lactic Acid 3.4 H 07/17/18 1148: Anion Gap 13, Estimated GFR 43 L, BUN/Creatinine Ratio 15.0, Glucose 292 H, Lactic Acid 3.0 H, Calcium 9.8, Total Bilirubin 0.7, AST 26, ALT 29, Alkaline Phosphatase 157 H, Total Protein 6.8, Albumin 4.2, Globulin 2.6, Albumin/ Globulin Ratio 1.6, CBC w Diff MAN DIFF ORDERED, RBC 5.09, MCV 89.1, MCH 30.1, MCHC 33.8, RDW 14.2, MPV 11.1 H, Gran % 82.2 H, Lymphocytes % 12.9 L, Monocytes % 4.3, Eosinophils % 0.4, Basophils % 0.2, Absolute Granulocytes 13.3 H, Absolute Lymphocytes 2.1, Absolute Monocytes 0.7 H, Absolute Eosinophils 0.1 , Absolute Basophils 0, Platelet Estimate ADEQUATE, Normocytic RBCs VERIFIED, Normochromic RBCs VERIFIED, Urine Color YEL, Urine Clarity CLEAR, Urine pH 6.0, Ur Specific [place] 1.010, Urine Protein NEG, Urine Ketones NEG, Urine Nitrite NEG, Urine Bilirubin NEG, Urine Urobilinogen 0.2, Ur Leukocyte Esterase TRACE H , Ur Microscopic SEDIMENT EXAMINED, Urine RBC RARE, Urine WBC RARE, Ur Epithelial Cells FEW, Urine Hemoglobin TRACE-INTACT, Urine Glucose 500 H Microbiology 07/17 152 URINE ROUT: Urine Culture - ORD 07/17 152 BLOOD: Blood Culture - ORD 07/17 152 BLOOD: Blood Culture - ORD Comments: 07/17/2018 3:06:46 PM patient signed out to me 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 (Abeba CONNORS,Hugo Ortiz) Departure Departure Disposition: STILL A PATIENT Condition: Stable Clinical Impression Primary Impression: Acute cystitis Qualifiers: Hematuria presence: without hematuria Qualified Code: N30.00 - Acute cystitis without hematuria Secondary Impressions: Dermatitis Elevated lactic acid level Elevated WBC count Qualifiers: Leukocytosis type: unspecified Qualified Code: D72.829 - Elevated white blood cell count, unspecified Referrals: Jimenez Rutherford MD (PCP/Family) Departure Forms: Customer Survey General Discharge Information (Robbie Benites MD) Critical Care Note Critical Care Note Critical Care Time: non-applicable (Robbie Benites MD)
--- NOTE | 2018-07-17 15:38 | History & Physical ---
Dudley Yancey 07/17/18 1537: General Information and HPI History of Present Illness: 78-year-old female with past medical history of diabetes mellitus on insulin, hypertension, fibromyalgia, COPD, diabetes, spinal stenosis, insomnia total hip replacement 2016, past surgical history right thyroid lobectomy, oophorectomy, spinal surgery two disc removed from spine presented to emergency department with chief complaint of itching of both forearm extensor surface since last night and urinary hesitancy/dysuria since 2 weeks. She recently changed her detergent 1 week ago and she having history of eczema. Ecchymosis and itching in her forearm can be related due to eczema and scratching. She had fever 99.5 this morning. She also complaining diarrhea which is due to IBS. She denies chills, abdominal pain, constipation, chest pain, palpitation, headache, weight loss,, sick contact, bushes contact. Allergies/Medications Allergies: Coded Allergies: Penicillins (RASH 01/04/16) acetaminophen (? 03/16/17) albuterol (From VENTOLIN HFA) (? 03/16/17) celecoxib (From CELEBREX) (? 03/16/17) codeine (From TYLENOL-CODEINE) (? 03/16/17) hydrochlorothiazide (From MAXZIDE) (UNKNOWN 01/04/16) iodine (? 03/16/17) polymyxin B (? 03/16/17) rofecoxib (From VIOXX) (? 03/16/17) sulfamethoxazole (From SEPTRA) (UNKNOWN 01/04/16) triamterene (From MAXZIDE) (UNKNOWN 01/04/16) trimethoprim (From SEPTRA) (UNKNOWN 01/04/16) gabapentin (NAUSEA / VOMITING 03/16/17) prednisone (NAUSEA / VOMITING 03/16/17) Home Med list Benazepril HCl 20 MG TABLET 1 TAB PO DAILY BP (Reported) Furosemide 40 MG TABLET 1 TAB PO DAILY WATER RETENTION (Reported) Insulin Detemir (Levemir) 100 UNIT/ML VIAL 25 UNITS SC BID DM II (Reported) Levothyroxine Sodium 75 MCG TABLET 1 TAB PO DAILY AC THYROID (Reported) Potassium Chloride 8 MEQ TABLET.ER 1 TAB PO DAILY SUPPLEMENT (Reported) Trazodone HCl 50 MG TABLET 1 TAB PO QPM SLEEP (Reported) Past History Travel History Traveled to [place] past 21 day No Medical History Neurological: NONE EENT: NONE Cardiovascular: hypertension Respiratory: bronchitis Gastrointestinal: irritable bowel syndrome Hepatic: NONE Renal: NONE Musculoskeletal: osteoarthritis, sciatica Psychiatric: NONE Endocrine: diabetes, hypothyroidism Blood Disorders: NONE Cancer(s): NONE FIELD SERVICES DIRECTOR/Reproductive: NONE Other Medical Hx: Fibromyalgia History of MRSA: No History of VRE: No History of CDIFF: No Surgical History Surgical History: SPINAL STENOSIS DISC REPAIRS CARPAL TUNNEL CHOLYCYSTECTOMY OOPHRECTOMY Past Family/Social History Psychosocial History Services at Home: None Review of Systems Review of Systems Constitutional: Reports: see HPI. Exam & Diagnostic Data Last 24 Hrs of Vital Signs/I&O Vital Signs Date Time Temp Pulse Resp B/P B/P Pulse O2 O2 Flow FiO2 Mean Ox Delivery Rate 07/17 1312 88 18 189/79 98 Room Air 07/17 1053 98.6 105 18 164/80 98 Room Air Intake & Output 07/17 1600 07/17 0800 07/17 0000 Intake Total 0 Output Total Balance 0 Intake, Oral 0 Patient 202 lb Weight Weight Reported by Patient Measurement Method Physical Exam General Appearance Alert, Oriented X3, Cooperative, No Acute Distress Skin Rash and ecchymosis on both extensor surfaces of both fore arm. HEENT Atraumatic, PERRLA, EOMI, Mucous Membr. moist/pink Neck Supple, No JVD, No thryomegaly, +2 Carotid Pulse wo Bruit, No LAD Cardiovascular Regular Rate, Normal S1, Normal S2, No Murmurs, Gallops, Rubs Lungs Clear to Auscultation, Normal Air Movement Abdomen Normal Bowel Sounds, Soft, No Tenderness, No Hepatospenomegaly, No Masses Neurological Normal Gait, Normal Speech, Strength at 5/5 X4 Ext, Normal Tone, Sensation Intact, Cranial Nerves 3-12 NL, Reflexes 2+ Extremities No Clubbing, No Cyanosis, Normal Pulses, No Tenderness/Swelling, PEDAL EDEMA Assessment/Plan Assessment: 78-year-old female with past medical history of diabetes mellitus on insulin, hypertension, fibromyalgia, bronchitis, osteoarthritis s/p hip replacement in 2017, sciatica, hypothyroidism, COPD not on home oxygen, spinal stenosis, insomnia total hip arthroplasty,past surgical history fourth right thyroid lobectomy, oophorectomy, spinal surgery two disc removed from spine presented to emergency department with chief complaint of itching of both forearm external surface since last night and dysuria for the last 2 weeks. At the time of presentation to emergency department her vitals and labs are given below Vitals: Temperature 98.6, pulse rate 105, respiratory rate 18, blood pressure 164/8 0, pulse oximetry 98% Labs: CBC, WBC 16.1, hemoglobin 15.3, HCT 45.3, platelet count 216 Sodium 136, potassium 4.5, chloride 99,, carbon dioxide 24, bun 18, anion gap 13 , GFR 43, BUN/creatinine ratio 15.0, glucose 292, Lactic acid 3, potassium4.5, alkaline phosphatase 157 Urinalysis: Urine pH 6.0, leukocyte esterase trace is high, microscopy sediment E, WBC rare, epithelial cells few, u hemoglobin trace, urine glucose 500 high Problems list: * UTI * Lactic acidosis * Rash/ecchymosis on extensor surfaces of both forearm * Uncontrolled diabetes mellitus * Hypertension Plan: Complicated urinary tract infection status post 2 doses of Macrobid: * Patient is known diabetic and on insulin having dysuria since 2 week * She said she having a cramp before starting urination * Leukocytosis 16,000 * She also having urinary hesitancy * Although there is no WBC in urine and may be due to her recent antibiotic use * There is esterase in her urine * For now we will treat her for complicated urinary tract infection * Will give IV hydration and will start on ceftriaxone 1 g OD Lactic acidosis: * Cause of elevated lactate level is hypoxia secondary due to decrease tissue perfusion * patient doest look sick that can lead to elevated lactic acid level * Will follow-up her lactate level * Will do serum lactate level every 3 hours Bilateral forearm extensor surfaces ecchymosis: * Patient having history of present change of detergent * She having history of eczema * Seemed like due to contact dermatitis or may be eczema flare * But ecchymosis are aggravated by scratching since last night * may be due to bleeding of her weak blood vessels wall Uncontrolled hypertension/uncontrolled diabetes mellitus: * Will continue her home medication * We will monitor her sugar * If needed we will follow endocrinology recommendation will place a consult for endocrinology at am *She will be admitted to general medical floor *GI DVT prophylaxis *Diabetic CC 2 diet *Full code As Ranked By This Provider Problem List: 1. Rash 2. Elevated WBC count Qualifiers Leukocytosis type: unspecified Qualified Code: D72.829 - Elevated white blood cell count, unspecified 3. Elevated lactic acid level 4. Hyperglycemia 5. Complicated UTI (urinary tract infection) Core Measures/Misc (07/16) Acute Coronary Syndrome ACS Diagnosis: No Congestive Heart Failure Congestive Heart Failure Diagnosis No Cerebrovascular Accident CVA/TIA Diagnosis: No VTE (View Protocol) VTE Risk Factors Age>40 No Mechanical VTE Prophylaxis d/t Other No VTE Pharm Prophylaxis d/t Other Sepsis (View protocol) Sepsis Present: No If YES complete Sepsis Event Note If YES complete Sepsis Event Note Neo Romeo MD 07/17/18 1620: Core Measures/Misc (07/16) Sepsis (View protocol) If YES complete Sepsis Event Note If YES complete Sepsis Event Note Attending MD Review Statement Attending Statement Attending MD Statement: examined this patient, discuss w/resident/PA/TRANSPLANT NURSE PRACTITIONER, agreed w/resident/PA/TRANSPLANT NURSE PRACTITIONER, reviewed EMR data (avail) Attending Assessment/Plan: 78F PMH Diabetes mellitus on insulin, hypertension, COPD, fibromyalgia, IBS, spinal stenosis presenting with complaints of arm and leg itching for the past day as well as two days of dysuria and difficulty urinating. She has no other complaints. Afebrile, hypertensive 189/70, WBC 16, lactate 3.4. UA is relatively normal, but she took two doses of Macrobid she had laying around over the weekend. She also has ecchymoses on both forearms from scratching them overnight , though they are no longer itchy and are not painful. Will admit patient for UTI and lactic acidosis, Ceftriaxone given, IV hydration, trend lactate. Bolivar CONNORS,Chava 07/17/18 1659: Core Measures/Misc (07/16) Sepsis (View protocol) If YES complete Sepsis Event Note If YES complete Sepsis Event Note Resident Review Statement Resident Statement: examined this patient, discussed with grinder set up operator internal, amended to note Other Findings: 78-year-old very pleasant lady with past medical history significant for diabetes on insulin therapy, hypertension, COPD, fibromyalgia, diabetes diarrhea predominant, spinal stenosis presents to [facility] with 2 day history of dysuria and difficulty urinating. No report of fever or chills. Patient has leukocytosis, UA is unremarkable however she admits to taking 2 day therapy of nitrofurantoin from old prescription bottle.. Impression * Urinary tract infection as evident by. As evident by symptoms of dysuria, difficulty urinating, and leukocytosis. UA is not suggestive of any infection, however this is most likely due to the fact that she to nitrofurantoin 2 days prior to presentation. * Hyperlactetemia. Currently etiology unknown. Patient does not appear fluid depleted, and even though she has clinical symptoms UTI, she does not have a septic picture. On the contrary, she has a history of fluid retention in her lower extremities which was also evident on examination today. Hypoxia can cause elevated lactic acid, , however patient is stable at room temperature without any respiratory distress. Other very less likely causes of elevated lactic acid include medication, Nitrofurantoin (???). * Pruritic erythematous rash on both upper extremities. The rash appears more like an ecchymotic rash, patient is denying taking any anticoagulation/ antipaletlet or trauma. Even though patient reports that her rash developed less than 24 hours, its appearance on examination does not suggest this. She does report a hx of eczema, this could most likely reporesent her flare up of her eczema . Contact dermatitis is a possible differential given the rash is only located on the upper extremities. * History of chronic disease; hypertension, COPD, fibromyalgia, IBS, spinal stenosis, diabetes. Plan Admit to general med floor Continue ceftriaxone for treatment of UTI follow-up blood cultures and urine cultures Trend lactic acid Withhold any more IV fluid as of now, patient blood pressure was elevated of normal saline hydration and she actually has pitting edema on her lower extremities. Withhold Lasix and consider restarting tomorrow DVT prophylaxis: Heparin CODE STATUS : Full code
[2018-07-17 17:36] VITALS: BP 160/80
--- NOTE | 2018-07-17 18:34 | PN- Att Addend ---
Attending Addendum Attending Brief Note 78F PMH Diabetes mellitus on insulin, hypertension, COPD, fibromyalgia, IBS, spinal stenosis presenting with complaints of arm and leg itching for the past day as well as two days of dysuria and difficulty urinating. She has no other complaints. Afebrile, hypertensive 189/70, WBC 16, lactate 3.4. UA is relatively normal, but she took two doses of Macrobid she had laying around over the weekend. She also has ecchymoses on both forearms from scratching them overnight , though they are no longer itchy and are not painful. Will admit patient for UTI and lactic acidosis, Ceftriaxone given, IV hydration, trend lactate.
[2018-07-17 22:43] VITALS: BP 137/69
[2018-07-18 07:03] VITALS: BP 153/69
--- NOTE | 2018-07-18 07:45 | PN- Housestaff ---
Dudley Yancey 07/18/18 0744: Subjective Follow-up For: Urinary tract infection Subjective: Patient seen and examined at bedside. She is complaining of itching in her both arms. She denies any fever or chills, chest pain, abdominal pain, diarrhea, constipation, burning micturition. Review of Systems Constitutional: Reports: see HPI. Objective Last 24 Hrs of Vital Signs/I&O Vital Signs Date Time Temp Pulse Resp B/P B/P Pulse O2 O2 Flow FiO2 Mean Ox Delivery Rate 07/18 1440 97.8 64 18 159/74 97 Room Air 07/18 0703 97.4 66 18 153/69 96 Room Air 07/17 2243 98.1 67 18 137/69 95 Room Air 07/17 2057 97.7 07/17 1736 98.2 70 18 160/80 96 Room Air 07/17 1644 98.0 70 16 133/70 96 Room Air Intake & Output 07/18 1600 07/18 0800 07/18 0000 Intake Total 200 580 Output Total Balance 200 580 Intake, IV 200 100 Intake, Oral 480 Patient 201 lb Weight Weight Bed scale Measurement Method Physical Exam General Appearance: Alert, Oriented X3, Cooperative, No Acute Distress Cardiovascular: Normal S1, Normal S2 Lungs: Clear to Auscultation, Normal Air Movement Abdomen: Normal Bowel Sounds, Soft, No Tenderness, No Hepatospenomegaly, No Masses Neurological: Normal Gait, Normal Speech, Strength at 5/5 X4 Ext, Normal Tone, Sensation Intact Extremities: No Cyanosis, Normal Pulses, Bilateral pedal edema Assessment/Plan Assessment: 78-year-old female with past medical history of diabetes mellitus type II on insulin, hypertension, fibromyalgia, bronchitis, osteoarthritis s/p hip replacement in 2017, sciatica, hypothyroidism, COPD not on home oxygen, spinal stenosis, insomnia total hip arthroplasty,past surgical history fourth right thyroid lobectomy, oophorectomy, spinal surgery two disc removed from spine presented to emergency department with chief complaint of itching of both forearm external surface since last night and dysuria for the last 2 weeks. At the time of presentation to emergency department her vitals and labs are given below Vitals: Temperature 98.6, pulse rate 105, respiratory rate 18, blood pressure 164/8 0, pulse oximetry 98% Labs: CBC, WBC 16.1, hemoglobin 15.3, HCT 45.3, platelet count 216 Sodium 136, potassium 4.5, chloride 99,, carbon dioxide 24, bun 18, anion gap 13 , GFR 43, BUN/creatinine ratio 15.0, glucose 292, Lactic acid 3, potassium4.5, alkaline phosphatase 157 Urinalysis: Urine pH 6.0, leukocyte esterase trace is high, microscopy sediment E, WBC rare, epithelial cells few, u hemoglobin trace, urine glucose 500 high Problems list: * Complicated UTI * Uncontrolled diabetes mellitus type II * Hypertension Plan: Complicated urinary tract infection status post 2 doses of Macrobid: * Patient had symptoms of dysuria since 2 weeks, leukocytosis * He is known diabetic type II * We started treating her on ceftriaxone * Her leukocyte trended down * Shows anticipated discharge her today on ciprofloxacin 500 mg twice daily for 3 days Uncontrolled hypertension/uncontrolled diabetes mellitus: * She was continued on her home medication lisinopril * Discharge home medication continued for diabetes and hypertension *GI DVT prophylaxis *Diabetic CC 2 diet *Full code Problem List: 1. Elevated lactic acid level 2. Dermatitis 3. Complicated UTI (urinary tract infection) 4. Rash Pain Ratin Pain Location: No pain Pain Goal: Remain pain free Pain Plan: Pain management pathway Tomorrow's Labs & Rationales: No labs Darell Ontiveros 07/18/18 1112: Attending MD Review Statement Attending Statement Attending MD Statement: examined this patient, discuss w/resident/PA/SOCIAL SCIENCE INSTRUCTOR, agreed w/resident/PA/SOCIAL SCIENCE INSTRUCTOR, discussed with family, reviewed EMR data (avail), discussed with nursing, discussed with case mgmt, reviewed images, amended to note Attending Assessment/Plan: 77-year-old female with history of Diabetes mellitus on insulin, hypertension, COPD, fibromyalgia, IBS, spinal stenosis and insomnia came with complaints of arm and leg itching for the past day as well as two days of dysuria and difficulty urinating. C/o itching in rash today. Afebrile, bp better, WBC 16>>9, lactate 3.4>>1.7. UA with mild leukocyte esterase. Continue management for UTI and lactic acidosis, Tolerating Ceftriaxone ( allergic to penicillins), IV hydration. Rash continue supportive care. Local Ointment. Referral to dermatology outpatient. gi/dvt prophylaxis full code
[2018-07-18 09:29] LABS: ABSOLUTE BASOPHIL COUNT 0 /CUMM (0.0-0.2); ABSOLUTE EOSINOPHIL COUNT 0.1 /CUMM (0.0-0.7); ABSOLUTE GRANULOCYTE CT 6.4 /CUMM (1.4-6.5); ABSOLUTE MONOCYTE COUNT 0.5 /CUMM (0.10-0.60); BASOPHIL % 0.4 % (0.0-2.0); EOSINOPHIL % 1.6 % (0-5); GRANULOCYTE % 69.9 % (42.2-75.2); HEMATOCRIT 41.2 % (37-47); MEAN CORPUSCULAR HGB 29.4 PG (27.0-31.0); MEAN CORPUSCULAR HGB CONC 32.9 G/DL (33.0-37.0); MEAN CORPUSCULAR VOLUME 89.2 FL (81.0-99.0); MEAN PLATELET VOLUME 11.1 FL (7.4-10.4); PLATELET COUNT 172 /CUMM (130-400); RBC DISTRIBUTION WIDTH 14.2 % (11.5-14.5); RED BLOOD CELL CT 4.61 /CUMM (4.20-5.40); WHITE BLOOD CELL COUNT 9.1 /CUMM (4.8-10.8)
--- NOTE | 2018-07-18 10:14 | Patient Discharge Instructions ---
Discharge Instructions General Discharge Information You were seen/treated for: Urinary tract infection Watch for these problems: Fever, chills, burning micturition, urethral discharge, lower abdominal pain, altered mental status Special Instructions: Please follow up with your [facility] care physician in 1 week In case of fever, burning micturition, urethral discharge please contact your primary care physician Please increase water intake Please keep clean personal hygiene Activity Activity Self Limited: Yes Acute Coronary Syndrome Inclusion Criteria At DC or during hospital stay patient has or had the following: ACS DIAGNOSIS No Discharge Core Measures Meds if any: Prescribed or Continued at Discharge Meds if any: NOT Prescribed or Continued at Discharge Congestive Heart Failure Inclusion Criteria At DC or during hospital stay patient has or had the following: CHF DIAGNOSIS No Discharge Core Measures Meds if any: Prescribed or Continued at Discharge Meds if any: NOT Prescribed or Continued at Discharge Cerebrovascular accident Inclusion Criteria At DC or during hospital stay patient has or had the following: CVA/TIA Diagnosis No Discharge Core Measures Meds if any: Prescribed or Continued at Discharge Meds if any: NOT Prescribed or Continued at Discharge Venous thromboembolism Inclusion Criteria VTE Diagnosis No VTE Type NONE VTE Confirmed by (Test) NONE Discharge Core Measures - Per Current guidelines, there needs to be overlap - treatment for the first 5 days of Warfarin therapy. - If discharged on Warfarin prior to 5 days of - overlap therapy, the patient will need to be - assessed for post discharge needs including - *Post discharge parental anticoagulation - *Warfarin and/or parental anticoagulation education - *Follow up date to check INR post discharge At least 5 days overlap therapy as Inpatient No Meds if any: Prescribed or Continued at Discharge Note: Overlap Therapy is Warfarin and Anticoagulant Meds if any: NOT Prescribed or Continued at Discharge
[2018-07-18 14:40] VITALS: BP 159/74
--- NOTE | 2018-07-18 15:02 | Discharge Summary ---
Visit Information Visit Dates Admission Date: 07/17/18 Discharge Date: 07/18/18 Hospital Course Course Attending Physician: Darell Ontiveros MD Primary Care Physician: Jimenez Rutherford MD Hospital Course: 78-year-old female with past medical history of diabetes mellitus type II on insulin, hypertension, fibromyalgia, bronchitis, osteoarthritis s/p hip replacement in 2017, sciatica, hypothyroidism, COPD not on home oxygen, spinal stenosis, insomnia total hip arthroplasty,past surgical history fourth right thyroid lobectomy, oophorectomy, spinal surgery two disc removed from spine presented to emergency department with chief complaint of itching of both forearm external surface since last night and dysuria for the last 2 weeks. Hospital course: At the time of presentation to emergency department her vitals and labs are given below Vitals: Temperature 98.6, pulse rate 105, respiratory rate 18, blood pressure 164/8 0, pulse oximetry 98% Labs: CBC, WBC 16.1, hemoglobin 15.3, HCT 45.3, platelet count 216 Sodium 136, potassium 4.5, chloride 99,, carbon dioxide 24, bun 18, anion gap 13 , GFR 43, BUN/creatinine ratio 15.0, glucose 292, Lactic acid 3, potassium4.5, alkaline phosphatase 157 Urinalysis: Urine pH 6.0, leukocyte esterase trace is high, microscopy sediment E, WBC rare, epithelial cells few, u hemoglobin trace, urine glucose 500 high She was treated for the following problems at hospital * Complicated UTI * Itching and ecchymosis on both on extensor surfaces Complicated urinary tract infection: Patient having dysuria since two weeks before coming hospital. She took 2 doses of Macrobid. In the setting of dysuria and leukocytosis she was suspected having a urinary tract infection. Although her urinalysis was normal due to her recent use of antibiotic aortic.She was started on ceftriaxone 1 g OD. Her leukocytosis trended down. She is feeling comfortable. We will give her ciprofloxacin 500 mg twice daily for 3 days at the time of discharge. Lactic acidosis: At the time of presentation lactate level was high. Hydration done with normal saline. lactate trended down to normal level Uncontrolled hypertension/uncontrolled diabetes mellitus: * She was continued on her home medication lisinopril * medication continued for diabetes and hypertension * Insulin Levemir 20 units twice daily continued for sugar, *Patient discharged *She was counseled regarding medication compliance, strict diabetic controle and clean self hygene. Allergies: Coded Allergies: Penicillins (RASH 01/04/16) acetaminophen (? 03/16/17) albuterol (From VENTOLIN HFA) (? 03/16/17) celecoxib (From CELEBREX) (? 03/16/17) codeine (From TYLENOL-CODEINE) (? 03/16/17) hydrochlorothiazide (From MAXZIDE) (UNKNOWN 01/04/16) iodine (? 03/16/17) polymyxin B (? 03/16/17) rofecoxib (From VIOXX) (? 03/16/17) sulfamethoxazole (From SEPTRA) (UNKNOWN 01/04/16) triamterene (From MAXZIDE) (UNKNOWN 01/04/16) trimethoprim (From SEPTRA) (UNKNOWN 01/04/16) gabapentin (NAUSEA / VOMITING 03/16/17) prednisone (NAUSEA / VOMITING 03/16/17) Disposition Summary Disposition Principal Diagnosis: Urinary tract infection Additional Diagnosis: Diabetes mellitus type 2 Insomnia Thyroid lobectomy Oophorectomy Hypertension Diabetes mellitus Osteoarthritis Fibromyalgia COPD Spinal stenosis Discharge Disposition: home or self care Discharge Instructions General Discharge Information Code Status: Full Code Patient's Diet: Diabetic diet Patient's Activity: Self-limited Follow-Up Instructions/Appts: Please follow-up with your primary care physician in 1 week In case of medical attention please contact your primary care physician Please monitor your sugar level strictly Please be compliant with your medication In case of uncontrolled hypertension and blood pressure please contact your primary care physician Medications at Discharge Discharge Medications: Continue taking these medications: Benazepril HCl (Benazepril HCl) 20 MG TABLET 1 Tablet ORAL DAILY Comments: TOOK LISINIPRIL IN HOSPITAL Last Taken: 03/25/17 Time: 0830 AM Levothyroxine Sodium (Levothyroxine Sodium) 75 MCG TABLET 1 Tablet ORAL DAILY BEFORE BREAKFAST Comments: Last Taken: 07/18/18 Time: 5:32 AM Trazodone HCl (Trazodone HCl) 50 MG TABLET 1 Tablet ORAL Every night Comments: Last Taken: 07/18/18 Time: 10:08 PM Insulin Detemir (Levemir) 100 UNIT/ML VIAL 25 Units SC TWICE DAILY Comments: Last Taken: 07/18/18 Time: 9:47 AM Furosemide (Furosemide) 40 MG TABLET 1 Tablet ORAL DAILY Qty = 90 Comments: NOT GIVEN IN HOSPITAL Potassium Chloride (Potassium Chloride) 8 MEQ TABLET.ER 1 Tablet ORAL DAILY Qty = 90 Comments: NOT GIVEN IN HOSPITAL Start taking the following new medications: Ciprofloxacin HCl (Cipro) 500 MG TABLET 500 Milligram ORAL TWICE DAILY Qty = 6 No Refills Instructions: .. Copies To: Sangeeta CONNORS,Jimenez Melara Attending MD Review Statement Documenting Attending: Darell Ontiveros MD Other Findings: 77-year-old female with history of Diabetes mellitus on insulin, hypertension, COPD, fibromyalgia, IBS, spinal stenosis and insomnia came with complaints of arm and leg itching for the past day as well as two days of dysuria and difficulty urinating. Patient clinically improved and discharged on oral antibiotics with follow up with PCP in 1 week of discharge.
[2018-07-18] MEDS ORDERED: CIPRO500 M1 PO ×2 (15:07→15:12)
== END 2018-07-18 17:02 | DRG 690 ==
LOC: ERH 10:48 → 2NB 15:29 → ERHI 15:29 → ENRESERV 16:09 → ENTRNSPT 17:01 → 2NB 17:03 → EDTRNSPTSTS 17:16 → 2NB 17:29 → CMPTRNSPT 18:04 → 2NB 07-18 07:44 → ENPENDDIS 07-18 16:44 → 2NB 07-18 17:02
PROVIDERS: Physician Assistant Medical; Student in an Organized Health Care Education/Training Program
DX: N39.0 Urinary tract infection, site not specified (principal); E87.2 Acidosis; Z79.4 Long term (current) use of insulin; J44.9 Chronic obstructive pulmonary disease, unspecified; M79.7 Fibromyalgia; R21 Rash and other nonspecific skin eruption; E11.65 Type 2 diabetes mellitus with hyperglycemia; I10 Essential (primary) hypertension; Z96.649 Presence of unspecified artificial hip joint; E89.0 Postprocedural hypothyroidism; Z98.1 Arthrodesis status; Z90.722 Acquired absence of ovaries, bilateral; Z90.49 Acquired absence of other specified parts of digestive tract; Z88.6 Allergy status to analgesic agent; Z88.0 Allergy status to penicillin; Z88.2 Allergy status to sulfonamides; Z88.8 Allergy status to other drugs, medicaments and biological substances; B96.89 Other specified bacterial agents as the cause of diseases classified elsewhere
CPT/HCPCS: 2NBSP; 36592; 81001; 82436; 87040; 87086; J0131; J0696; J1644; J7040; Q2036